=== PATIENT | male | born 1935 | race Caucasian/White ===

== ENCOUNTER 2020-12-19 15:40 | Inpatient (IN) | payer OTHER, BC ==
[2020-12-19 15:55] VITALS: BMI 31.4
[2020-12-19] MEDS ORDERED: ACETAMINOPHEN 325 MG TABLET (FP) PO ONE (16:24)
[2020-12-19 17:26] LABS: BASO % 0.5 % (0-2.0); HEMATOCRIT 39.8 % (35.4-49); HEMOGLOBIN 13.2 GM/dL (11.7-16.9); LYMPH % 21.4 % (8-40); MCH 30.2 pg (25.7-33.7); MCHC 33.2 g/dl (32.0-35.9); MEAN PLT VOLUME 8.1 fl (7.5-11.1); MONO % 6.8 % (3.8-10.2); NEUT % 69.3 % (42.8-82.8); PLATELET COUNT 207 10^3/uL (134-434); RBC 4.37 M/mm3 (4.00-5.60); RDW 17.5 % (11.9-15.9); WHITE BLOOD COUNT 12.1 K/mm3 (4.0-10.0)
[2020-12-19 17:33] LABS: INR 1.4 (0.83-1.09); PROTHROMBIN TIME (PATIENT) 17.1 SEC (9.7-13.0)
[2020-12-19 17:36] LABS: ACTIVATED PTT 21.1 SECONDS (25.2-36.5)
[2020-12-19 17:46] LABS: CALCIUM 9.1 mg/dL (8.5-10.1)
[2020-12-19 17:47] LABS: ALBUMIN 3.7 g/dl (3.4-5.0); BLOOD UREA NITROGEN 23.7 mg/dL (7-18)
[2020-12-19 17:50] LABS: CREATININE 1.4 mg/dL (0.55-1.3)
[2020-12-19 17:52] LABS: BILIRUBIN,TOTAL 0.5 mg/dL (0.2-1); TOT PROT 7.9 g/dl (6.4-8.2)
[2020-12-19] MEDS ORDERED: SODIUM CHLORIDE 500 ML IV STA (17:59)
[2020-12-19] MEDS ORDERED: oxyCODONE HCL 5 MG TABLET PO ONE (18:04)
[2020-12-19 21:52] LABS: MAGNESIUM 2.1 mg/dL (1.8-2.4)
[2020-12-19 21:56] LABS: PHOSPHOROUS 2.8 mg/dL (2.5-4.9)
[2020-12-20 00:04] LABS: EPI CELLS 8 /uL (0-25.1); HYALINE CASTS 13 /uL (0-3.1); URINE APPEARANCE CLOUDY; URINE BACTERIA 5 /uL (0-1359); URINE BILIRUBIN NEGATIVE (NEGATIVE); URINE COLOR DK YELLOW; URINE GLUCOSE (UA) NEGATIVE (NEGATIVE); URINE KETONE TRACE (NEGATIVE); URINE LEUK ESTERASE NEGATIVE (NEGATIVE); URINE NITRITE NEGATIVE (NEGATIVE); URINE PROTEIN TRACE (NEGATIVE); URINE RBC 16 /uL (0-23.9); URINE WBC 10 /uL (0-25.8)
[2020-12-20] MEDS ORDERED: APIXABAN 5 MG TABLET ONE ×2 (03:14→10:25)
[2020-12-20] MEDS: APIXABAN 5 MG TABLET PO SCH ×3 (03:20→21:41)
[2020-12-20] MEDS: ACETAMINOPHEN 325 MG TABLET (FP) PO PRN ×2 (03:20→21:50)
[2020-12-20] MEDS ORDERED: LIDOCAINE 5% TOPICAL PATCH TP ONE (05:58)
[2020-12-20] MEDS: INSULIN SLIDING SCALE (NOVOLOG) 1 VIAL SQ SCH ×4 (06:23→21:42)
[2020-12-20] MEDS: THYROID 60 MG TABLET PO SCH (06:38)
[2020-12-20] MEDS ORDERED: THYROID PORK 120 MG PO SCH (10:00)
[2020-12-20] MEDS ORDERED: LIDOCAINE PATCH REMOVAL MC ONE (19:00)
[2020-12-20] MEDS ORDERED: TAMSULOSIN HCL 0.4 MG CAP ONE (20:07)
[2020-12-20] MEDS ORDERED: VALSARTAN 80 MG TABLET ONE (20:07)
[2020-12-20] MEDS: VALSARTAN 80 MG TABLET PO SCH (20:14)
[2020-12-20] MEDS: TAMSULOSIN HCL 0.4 MG CAP PO SCH (20:14)
[2020-12-20] MEDS: ALLOPURINOL 100 MG TABLET (FP) PO SCH (21:41)
[2020-12-20] MEDS: RANOLAZINE E.R. 500 MG TABLET (FP) PO SCH (21:41)
[2020-12-21] MEDS ORDERED: traMADol HCL 50 MG TABLET PO ONE (01:36)
[2020-12-21] MEDS: THYROID 60 MG TABLET PO SCH (06:35)
[2020-12-21] MEDS: INSULIN SLIDING SCALE (NOVOLOG) 1 VIAL SQ SCH ×4 (06:36→21:27)
[2020-12-21] MEDS ORDERED: INSULIN SLIDING SCALE (NOVOLOG) 1 VIAL SQ ONE (07:00)
[2020-12-21] MEDS: TAMSULOSIN HCL 0.4 MG CAP PO SCH (07:40)
[2020-12-21 07:42] LABS: BASO % 1.1 % (0-2.0); EOS % 5.9 % (0-4.5); HEMATOCRIT 39.5 % (35.4-49); HEMOGLOBIN 13.3 GM/dL (11.7-16.9); LYMPH % 28.5 % (8-40); MCH 30.7 pg (25.7-33.7); MCHC 33.8 g/dl (32.0-35.9); MEAN CELL VOLUME 90.8 fl (80-96); MEAN PLT VOLUME 8.1 fl (7.5-11.1); MONO % 9.4 % (3.8-10.2); NEUT % 55.1 % (42.8-82.8); PLATELET COUNT 172 10^3/uL (134-434); RBC 4.35 M/mm3 (4.00-5.60); RDW 17.4 % (11.9-15.9); WHITE BLOOD COUNT 10.2 K/mm3 (4.0-10.0)
[2020-12-21 08:04] LABS: ALBUMIN 3.1 g/dl (3.4-5.0)
[2020-12-21 08:06] LABS: CALCIUM 8.9 mg/dL (8.5-10.1)
[2020-12-21 08:08] LABS: CREATININE 1.2 mg/dL (0.55-1.3)
[2020-12-21 08:09] LABS: PHOSPHOROUS 2.7 mg/dL (2.5-4.9); TOT PROT 7.1 g/dl (6.4-8.2)
[2020-12-21 08:11] LABS: BILIRUBIN,TOTAL 0.7 mg/dL (0.2-1)
[2020-12-21] MEDS: RANOLAZINE E.R. 500 MG TABLET (FP) PO SCH (09:19)
[2020-12-21] MEDS: APIXABAN 5 MG TABLET PO SCH ×2 (09:19→21:26)
[2020-12-21] MEDS: ALLOPURINOL 100 MG TABLET (FP) PO SCH (09:19)
[2020-12-21] MEDS: VALSARTAN 80 MG TABLET PO SCH (09:19)
[2020-12-21] MEDS: VALSARTAN 40 MG TABLET PO SCH (09:47)
[2020-12-21] MEDS ORDERED: PT OWN MED DRAWER 7, Y5N ONE ×2 (10:13→21:34)
[2020-12-21] MEDS: ACETAMINOPHEN 325 MG TABLET (FP) PO PRN ×2 (11:04→17:43)
[2020-12-21] MEDS ORDERED: ACETAMINOPHEN 325 MG TABLET (FP) PO ONE (21:00)
[2020-12-21] MEDS ORDERED: oxyCODONE HCL 5 MG TABLET PO ONE (21:00)
[2020-12-22] MEDS: ACETAMINOPHEN 325 MG TABLET (FP) PO PRN ×2 (05:39→14:02)
[2020-12-22] MEDS: THYROID 60 MG TABLET PO SCH (06:04)
[2020-12-22] MEDS: INSULIN SLIDING SCALE (NOVOLOG) 1 VIAL SQ SCH ×3 (06:04→17:14)
[2020-12-22] MEDS ORDERED: INSULIN SLIDING SCALE (NOVOLOG) 1 VIAL SQ ONE (06:50)
[2020-12-22 07:29] LABS: HEMATOCRIT 37.5 % (35.4-49); HEMOGLOBIN 12.4 GM/dL (11.7-16.9); MCH 30.2 pg (25.7-33.7); MEAN CELL VOLUME 91.4 fl (80-96); MEAN PLT VOLUME 8.2 fl (7.5-11.1); PLATELET COUNT 180 10^3/uL (134-434); RBC 4.11 M/mm3 (4.00-5.60); RDW 17.4 % (11.9-15.9); WHITE BLOOD COUNT 8.9 K/mm3 (4.0-10.0)
[2020-12-22 07:51] LABS: ALBUMIN 2.8 g/dl (3.4-5.0); CALCIUM 8.7 mg/dL (8.5-10.1)
[2020-12-22 07:52] LABS: BLOOD UREA NITROGEN 26.5 mg/dL (7-18); MAGNESIUM 2.2 mg/dL (1.8-2.4)
[2020-12-22 07:54] LABS: BILIRUBIN,TOTAL 0.4 mg/dL (0.2-1); CREATININE 1.1 mg/dL (0.55-1.3)
[2020-12-22 07:55] LABS: PHOSPHOROUS 2.7 mg/dL (2.5-4.9); TOT PROT 6.5 g/dl (6.4-8.2)
[2020-12-22] MEDS: TAMSULOSIN HCL 0.4 MG CAP PO SCH (08:41)
[2020-12-22] MEDS: VALSARTAN 40 MG TABLET PO SCH (10:47)
[2020-12-22] MEDS: APIXABAN 5 MG TABLET PO SCH (10:47)
[2020-12-22] MEDS: ALLOPURINOL 100 MG TABLET (FP) PO SCH (10:47)
[2020-12-22] MEDS ORDERED: traMADol HCL 50 MG TABLET PO ONE (12:30)
[2020-12-22 14:43] VITALS: PULSE 61
[2020-12-22 18:19] VITALS: BP 118/67; TEMP 97.5
== END 2020-12-22 20:20 | DRG 312 ==
LOC: JER 15:40 → JERBED 17:47 → OBSVTOIN 23:57 → J4S 12-20 20:47
PROVIDERS: ADMIT Internal Medicine; ATTEND Internal Medicine
PROC: 2W3TX2Z Immobilization of Left Foot using Cast (ICD-10-PCS; principal; 2020-12-20)
DX: I95.1 Orthostatic hypotension (principal); I48.0 Paroxysmal atrial fibrillation; E03.9 Hypothyroidism, unspecified; N40.0 Benign prostatic hyperplasia without lower urinary tract symptoms; M10.9 Gout, unspecified; I25.10 Atherosclerotic heart disease of native coronary artery without angina pectoris; G43.909 Migraine, unspecified, not intractable, without status migrainosus; I34.0 Nonrheumatic mitral (valve) insufficiency; N18.9 Chronic kidney disease, unspecified; I12.9 Hypertensive chronic kidney disease with stage 1 through stage 4 chronic kidney disease, or unspecified chronic kidney disease; E11.22 Type 2 diabetes mellitus with diabetic chronic kidney disease; D72.829 Elevated white blood cell count, unspecified; S82.845A Nondisplaced bimalleolar fracture of left lower leg, initial encounter for closed fracture; S93.402A Sprain of unspecified ligament of left ankle, initial encounter; W18.30XA Fall on same level, unspecified, initial encounter; Y92.090 Kitchen in other non-institutional residence as the place of occurrence of the external cause; Z88.0 Allergy status to penicillin; Z96.651 Presence of right artificial knee joint; Z95.0 Presence of cardiac pacemaker
CPT/HCPCS: 36415; 70450-TC; 71045-TC-FY; 72125-TC; 72128-TC; 72131-TC; 72170-TC-FY; 73610-TC-LT-FY; 73630-TC-LT; 76775-TC; 80053; 80061; 81003; 82436; 82550; 82570; 82962; 83036; 83735; 84100; 84133; 84300; 84443; 84484; 85025; 85027; 85610; 85730; 93005; 93010; 93306-TC; 93880-TC; 97116-GP; 97161-GP; 99285-25; C9803; G0378; U0003; U0005

== ENCOUNTER 2022-11-11 20:51 | Inpatient (IN) | payer OTHER, BC ==
[2022-11-11] MEDS ORDERED: ALBUTEROL SO4 2.5/IPRATROPIUM 0.5 INH SOL 3 ML VIAL.NEB. NEB ONE ×2 (22:21→22:58)
[2022-11-11 23:06] LABS: BASO % 0.9 % (0-2.0); EOS % 6.3 % (0-4.5); HEMATOCRIT 42.8 % (35.4-49); HEMOGLOBIN 13.9 GM/dL (11.7-16.9); LYMPH % 30.4 % (8-40); MCH 28.8 pg (25.7-33.7); MCHC 32.4 g/dl (32.0-35.9); MEAN CELL VOLUME 88.7 fl (80-96); MEAN PLT VOLUME 7.8 fl (7.5-11.1); MONO % 7.8 % (3.8-10.2); NEUT % 54.6 % (42.8-82.8); PLATELET COUNT 193 10^3/uL (134-434); RBC 4.83 M/mm3 (4.00-5.60); RDW 17.6 % (11.9-15.9); WHITE BLOOD COUNT 9.2 K/mm3 (4.0-10.0)
[2022-11-11 23:09] LABS: VENOUS O2 SATURATION 40.6 % (70-80); VENOUS PCO2 49.7 mmHg (38-52); VENOUS PH 7.315 (7.310-7.410)
[2022-11-11 23:15] LABS: INR 1.39 (0.83-1.09); PROTHROMBIN TIME (PATIENT) 16.1 SEC (9.7-13.0)
[2022-11-11 23:18] LABS: ACTIVATED PTT 35.7 SECONDS (25.2-36.5)
[2022-11-11 23:40] LABS: POTASSIUM 4.3 mmol/L (3.5-5.1)
[2022-11-11 23:42] LABS: CALCIUM 9.7 mg/dL (8.5-10.1)
[2022-11-11 23:43] LABS: ALBUMIN 3.3 g/dl (3.4-5.0); BLOOD UREA NITROGEN 23.1 mg/dL (7-18); MAGNESIUM 2.2 mg/dL (1.8-2.4)
[2022-11-11 23:46] LABS: CREATININE 1.3 mg/dL (0.55-1.3)
[2022-11-11 23:47] LABS: BILIRUBIN,TOTAL 0.4 mg/dL (0.2-1); TOT PROT 7.8 g/dl (6.4-8.2)
[2022-11-11 23:51] LABS: N-TERMINAL BNP 281.9 pg/ml (5-450)
[2022-11-12] MEDS ORDERED: ALBUTEROL SO4 2.5/IPRATROPIUM 0.5 INH SOL 3 ML VIAL.NEB. NEB ONE ×2 (02:09→02:10)
[2022-11-12] MEDS ORDERED: SUMAtriptan SUCCINATE 50 MG TABLET PO PRN (08:41)
[2022-11-12] MEDS: metFORMIN HCL 500 MG TABLET (FP) PO SCH (08:52)
[2022-11-12] MEDS: metoPROLOL SUCCINATE 25 MG TAB.SR.24H (FP) PO SCH (09:02)
[2022-11-12] MEDS: ALLOPURINOL 100 MG TABLET (FP) PO SCH (09:02)
[2022-11-12] MEDS: THYROID 60 MG TABLET PO SCH (09:02)
[2022-11-12] MEDS: APIXABAN 5 MG TABLET PO SCH ×2 (09:02→22:11)
[2022-11-12] MEDS: ALBUTEROL SO4 2.5/IPRATROPIUM 0.5 INH SOL 3 ML VIAL.NEB. NEB SCH ×2 (11:43→15:41)
[2022-11-12 13:47] VITALS: BMI 27.8
[2022-11-12] MEDS ORDERED: ALBUTEROL SO4 0.083% IH SOL 2.5 MG/3 ML VIAL.NEB. NEB PRN (16:18)
[2022-11-12] MEDS: FLUTICASONE/UMECLIDIN/VILANTER(200-62.5-25 TRELEGY ELLIPTA) INAHLER IH SCH (17:26)
[2022-11-12] MEDS ORDERED: BUDESONIDE 0.25 MG/2ML INH SUSP VIAL NEB SCH (20:00)
[2022-11-12] MEDS: PRAMIPEXOLE DIHYDROCHLORIDE 0.5 MG TABLET PO SCH (22:12)
[2022-11-12] MEDS: methylPREDNISolone NA SUCC 40 MG/1 ML VIAL IVPUSH SCH (23:56)
[2022-11-13] MEDS: methylPREDNISolone NA SUCC 40 MG/1 ML VIAL IVPUSH SCH ×3 (01:43→17:20)
[2022-11-13] MEDS: INSULIN SLIDING SCALE (NOVOLOG) 1 VIAL SQ SCH ×4 (06:42→17:20)
[2022-11-13] MEDS: metFORMIN HCL 500 MG TABLET (FP) PO SCH (06:43)
[2022-11-13] MEDS: metoPROLOL SUCCINATE 25 MG TAB.SR.24H (FP) PO SCH (10:10)
[2022-11-13] MEDS: ALLOPURINOL 100 MG TABLET (FP) PO SCH (10:10)
[2022-11-13] MEDS: APIXABAN 5 MG TABLET PO SCH ×2 (10:10→21:26)
[2022-11-13] MEDS: THYROID 60 MG TABLET PO SCH (10:11)
[2022-11-13] MEDS: FLUTICASONE/UMECLIDIN/VILANTER(200-62.5-25 TRELEGY ELLIPTA) INAHLER IH SCH (10:12)
[2022-11-13 10:14] LABS: BASO % 0.2 % (0-2.0); EOS % 0.1 % (0-4.5); HEMATOCRIT 38.3 % (35.4-49); HEMOGLOBIN 12.2 GM/dL (11.7-16.9); LYMPH % 19.2 % (8-40); MCH 28.7 pg (25.7-33.7); MCHC 31.8 g/dl (32.0-35.9); MEAN CELL VOLUME 90.4 fl (80-96); MONO % 1.2 % (3.8-10.2); NEUT % 79.3 % (42.8-82.8); PLATELET COUNT 180 10^3/uL (134-434); RBC 4.23 M/mm3 (4.00-5.60); RDW 17.8 % (11.9-15.9); WHITE BLOOD COUNT 5.7 K/mm3 (4.0-10.0)
[2022-11-13 10:30] LABS: CALCIUM 9.5 mg/dL (8.5-10.1)
[2022-11-13 10:34] LABS: CREATININE 1.1 mg/dL (0.55-1.3)
[2022-11-13] MEDS: SODIUM CHLORIDE 0.45% 1,000 ML IV SCH (13:20)
[2022-11-13] MEDS: ALBUTEROL SO4 0.083% IH SOL 2.5 MG/3 ML VIAL.NEB. NEB SCH ×3 (16:18→21:45)
[2022-11-13] MEDS: PRAMIPEXOLE DIHYDROCHLORIDE 0.5 MG TABLET PO SCH (21:26)
[2022-11-14] MEDS: methylPREDNISolone NA SUCC 40 MG/1 ML VIAL IVPUSH SCH ×2 (01:08→10:49)
[2022-11-14] MEDS: SODIUM CHLORIDE 0.45% 1,000 ML IV SCH ×2 (02:32→10:45)
[2022-11-14] MEDS: ALBUTEROL SO4 0.083% IH SOL 2.5 MG/3 ML VIAL.NEB. NEB SCH (08:20)
[2022-11-14] MEDS: INSULIN SLIDING SCALE (NOVOLOG) 1 VIAL SQ SCH ×2 (08:42→11:36)
[2022-11-14] MEDS: metFORMIN HCL 500 MG TABLET (FP) PO SCH (08:42)
[2022-11-14 09:54] LABS: POTASSIUM 4.5 mmol/L (3.5-5.1)
[2022-11-14 09:56] LABS: CALCIUM 9.3 mg/dL (8.5-10.1)
[2022-11-14 09:57] LABS: BLOOD UREA NITROGEN 29.6 mg/dL (7-18)
[2022-11-14 10:00] LABS: CREATININE 1.1 mg/dL (0.55-1.3)
[2022-11-14] MEDS: FLUTICASONE/UMECLIDIN/VILANTER(200-62.5-25 TRELEGY ELLIPTA) INAHLER IH SCH (10:49)
[2022-11-14] MEDS: metoPROLOL SUCCINATE 25 MG TAB.SR.24H (FP) PO SCH (10:49)
[2022-11-14] MEDS: ALLOPURINOL 100 MG TABLET (FP) PO SCH (10:49)
[2022-11-14] MEDS: THYROID 60 MG TABLET PO SCH (10:49)
[2022-11-14] MEDS: APIXABAN 5 MG TABLET PO SCH (11:42)
[2022-11-14 11:50] VITALS: RESP 16
[2022-11-14 14:56] VITALS: BP 141/72; PULSE 69; TEMP 98.3
== END 2022-11-14 15:08 | disposition home or self-care (01) | DRG 192 ==
LOC: JER 20:51 → JERBED 11-12 05:16 → J5S 11-12 09:11 → OBSVTOIN 11-13 10:04
PROVIDERS: ADMIT Internal Medicine; ATTEND Internal Medicine
DX: J47.9 Bronchiectasis, uncomplicated (principal); I10 Essential (primary) hypertension; E78.5 Hyperlipidemia, unspecified; E11.9 Type 2 diabetes mellitus without complications; I25.10 Atherosclerotic heart disease of native coronary artery without angina pectoris; I48.91 Unspecified atrial fibrillation; J98.01 Acute bronchospasm; E03.9 Hypothyroidism, unspecified; D72.10 Eosinophilia, unspecified
CPT/HCPCS: 0241U-QW; 36415; 71250-TC; 80048; 80053; 82803; 82962; 83735; 83880; 84484; 85025; 85610; 85730; 86682; 93005; 93010; 94150; 94640; 99285-25; G0378

== ENCOUNTER 2022-12-28 21:54 | Inpatient (IN) | payer OTHER, BC ==
[2022-12-28 22:07] VITALS: BMI 27.6
[2022-12-28 23:32] LABS: INR 1.43 (0.83-1.09); PROTHROMBIN TIME (PATIENT) 16.5 SEC (9.7-13.0)
[2022-12-28 23:34] LABS: BASO % 0.5 % (0-2.0); EOS % 0.6 % (0-4.5); HEMATOCRIT 39.9 % (35.4-49); HEMOGLOBIN 13.1 GM/dL (11.7-16.9); MCH 28.9 pg (25.7-33.7); MCHC 32.8 g/dl (32.0-35.9); MEAN CELL VOLUME 88.2 fl (80-96); MEAN PLT VOLUME 8.2 fl (7.5-11.1); MONO % 7.6 % (3.8-10.2); NEUT % 76.3 % (42.8-82.8); PLATELET COUNT 205 10^3/uL (134-434); RBC 4.52 M/mm3 (4.00-5.60); RDW 16.8 % (11.9-15.9)
[2022-12-28 23:35] LABS: ACTIVATED PTT 29.2 SECONDS (25.2-36.5)
[2022-12-28 23:43] LABS: CHLORIDE 105 mmol/L (98-107); SODIUM 137 mmol/L (136-145)
[2022-12-28 23:46] LABS: CALCIUM 8.8 mg/dL (8.5-10.1)
[2022-12-28 23:47] LABS: ALBUMIN 3.1 g/dl (3.4-5.0); BLOOD UREA NITROGEN 17.7 mg/dL (7-18); CO2 26 mmol/L (21-32); GLUCOSE,RANDOM 150 mg/dL (74-106)
[2022-12-28 23:50] LABS: CREATININE 1.7 mg/dL (0.55-1.3); SGOT/AST 84 U/L (15-37); SGPT/ALT 35 U/L (13-61)
[2022-12-28 23:51] LABS: TOT PROT 7.5 g/dl (6.4-8.2)
[2022-12-28 23:52] LABS: BILIRUBIN,TOTAL 0.6 mg/dL (0.2-1)
[2022-12-28 23:53] LABS: ALK PHOS 307 U/L (45-117); ANION GAP 6 MMOL/L (8-16); POTASSIUM 6.3 mmol/L (3.5-5.1)
[2022-12-29] MEDS ORDERED: ACETAMINOPHEN 1000 MG/100 ML BAG IVPB ONE (00:47)
[2022-12-29] MEDS ORDERED: METOCLOPRAMIDE HCL INJECTION 10 MG/2 ML VIAL IVPUSH ONE (00:47)
[2022-12-29] MEDS ORDERED: SODIUM CHLORIDE 0.9% 500 ML INFUS.BAG IV ONE (00:47)
[2022-12-29] MEDS ORDERED: ACETAMINOPHEN INJECTION 100 ML IVPB ONE (00:48)
[2022-12-29] MEDS ORDERED: METOCLOPRAMIDE HCL INJECTION 10 MG/2 ML VIAL ONE (00:48)
[2022-12-29 01:52] LABS: URINE APPEARANCE CLEAR; URINE BILIRUBIN NEGATIVE (NEGATIVE); URINE COLOR YELLOW; URINE GLUCOSE (UA) NEGATIVE (NEGATIVE); URINE KETONE TRACE (NEGATIVE); URINE LEUK ESTERASE NEGATIVE (NEGATIVE); URINE NITRITE NEGATIVE (NEGATIVE); URINE PROTEIN NEGATIVE (NEGATIVE)
[2022-12-29 02:03] LABS: POTASSIUM 4.1 mmol/L (3.5-5.1)
[2022-12-29 02:04] LABS: CALCIUM 7.9 mg/dL (8.5-10.1)
[2022-12-29 02:05] LABS: BLOOD UREA NITROGEN 18.2 mg/dL (7-18)
[2022-12-29 02:08] LABS: CREATININE 1.4 mg/dL (0.55-1.3)
[2022-12-29] MEDS ORDERED: KETOROLAC TROMETHAMINE 15 MG/ML VIAL IVPUSH ONE (04:24)
[2022-12-29] MEDS ORDERED: KETOROLAC TROMETHAMINE 15 MG/ML VIAL ONE (04:38)
[2022-12-29] MEDS ORDERED: ACETAMINOPHEN 1000 MG/100 ML BAG IVPB PRN (06:50)
[2022-12-29] MEDS ORDERED: SODIUM CHLORIDE 1,000 ML IV SCH (07:00)
[2022-12-29] MEDS ORDERED: PATIENT'S OWN MEDICATION (NON-FORMULARY) (Sumatriptan Succinate [Sumatriptan Succinate] 10 PO PRN (07:25)
[2022-12-29] MEDS ORDERED: SUMAtriptan SUCCINATE 50 MG TABLET PO PRN (07:37)
[2022-12-29] MEDS: INSULIN SLIDING SCALE (NOVOLOG) 1 VIAL SQ SCH ×4 (07:58→22:19)
[2022-12-29] MEDS ORDERED: APIXABAN 5 MG TABLET PO SCH (10:00)
[2022-12-29] MEDS ORDERED: THYROID PORK 120 MG PO SCH (10:00)
[2022-12-29] MEDS: metoPROLOL SUCCINATE 25 MG TAB.SR.24H (FP) PO SCH (10:48)
[2022-12-29] MEDS: PANTOPRAZOLE 40 MG TABLET PO SCH (10:48)
[2022-12-29] MEDS: THYROID 60 MG TABLET PO SCH (15:25)
[2022-12-29] MEDS: ACETAMINOPHEN 1000 MG/100 ML BAG IVPB PRN (18:42)
[2022-12-30] MEDS: ACETAMINOPHEN 1000 MG/100 ML BAG IVPB PRN (05:37)
[2022-12-30] MEDS: THYROID 60 MG TABLET PO SCH (06:44)
[2022-12-30] MEDS: INSULIN SLIDING SCALE (NOVOLOG) 1 VIAL SQ SCH ×4 (07:58→21:42)
[2022-12-30] MEDS: PANTOPRAZOLE 40 MG TABLET PO SCH (09:38)
[2022-12-30] MEDS: metoPROLOL SUCCINATE 25 MG TAB.SR.24H (FP) PO SCH (09:38)
[2022-12-30 09:57] LABS: BASO % 0.9 % (0-2.0); HEMATOCRIT 41.9 % (35.4-49); HEMOGLOBIN 13.2 GM/dL (11.7-16.9); LYMPH % 19.8 % (8-40); MCH 28.6 pg (25.7-33.7); MCHC 31.6 g/dl (32.0-35.9); MEAN CELL VOLUME 90.7 fl (80-96); MEAN PLT VOLUME 9.2 fl (7.5-11.1); MONO % 9.5 % (3.8-10.2); NEUT % 67.8 % (42.8-82.8); PLATELET COUNT 203 10^3/uL (134-434); RBC 4.62 M/mm3 (4.00-5.60); RDW 16.8 % (11.9-15.9); WHITE BLOOD COUNT 12.2 K/mm3 (4.0-10.0)
[2022-12-30 10:10] LABS: POTASSIUM 4.2 mmol/L (3.5-5.1)
[2022-12-30 10:11] LABS: CALCIUM 8.9 mg/dL (8.5-10.1)
[2022-12-30 10:13] LABS: MAGNESIUM 1.9 mg/dL (1.8-2.4)
[2022-12-30 10:15] LABS: CREATININE 1.1 mg/dL (0.55-1.3); PHOSPHOROUS 2.7 mg/dL (2.5-4.9)
[2022-12-30] MEDS: ACETAMINOPHEN 325 MG TABLET (FP) PO PRN ×2 (11:12→18:39)
[2022-12-30] MEDS ORDERED: amLODIPine BESYLATE 10 MG TABLET (FP) PO SCH (16:00)
[2022-12-30] MEDS ORDERED: VALPROATE SODIUM 500 MG/5 ML VIAL IVPB ONE (16:21)
[2022-12-30] MEDS: ALBUTEROL SO4 0.083% IH SOL 2.5 MG/3 ML VIAL.NEB. NEB PRN (16:37)
[2022-12-30] MEDS: RIMEGEPANT SULFATE 75 MG TAB.RAPDIS SL SCH (18:16)
[2022-12-30] MEDS: BUDESONIDE 0.25 MG/2ML INH SUSP VIAL NEB SCH (20:24)
[2022-12-30] MEDS: BUDESONIDE/FORMETEROL FUMARATE 80/4.5 mcg INHALER IH SCH (21:42)
[2022-12-30] MEDS ORDERED: metoPROLOL SUCCINATE 25 MG TAB.SR.24H (FP) PO SCH (22:00)
[2022-12-30] MEDS ORDERED: PRAMIPEXOLE DIHYDROCHLORIDE 0.5 MG TABLET PO SCH (22:00)
[2022-12-31] MEDS: INSULIN SLIDING SCALE (NOVOLOG) 1 VIAL SQ SCH ×4 (06:22→21:22)
[2022-12-31] MEDS: THYROID 60 MG TABLET PO SCH (06:23)
[2022-12-31] MEDS ORDERED: metoPROLOL SUCCINATE 25 MG TAB.SR.24H (FP) PO SCH (08:33)
[2022-12-31] MEDS: BUDESONIDE 0.25 MG/2ML INH SUSP VIAL NEB SCH ×2 (09:16→20:09)
[2022-12-31] MEDS: DIVALPROEX NA *ER* EXTEND REL 500 MG TABLET.SA (FP) PO SCH (09:25)
[2022-12-31] MEDS: metoPROLOL SUCCINATE 25 MG TAB.SR.24H (FP) PO SCH ×2 (09:25→21:12)
[2022-12-31] MEDS: APIXABAN 5 MG TABLET PO SCH ×2 (09:25→21:12)
[2022-12-31] MEDS: PANTOPRAZOLE 40 MG TABLET PO SCH (09:25)
[2022-12-31] MEDS: RIMEGEPANT SULFATE 75 MG TAB.RAPDIS SL SCH (09:25)
[2022-12-31] MEDS: ACETAMINOPHEN 325 MG TABLET (FP) PO PRN ×2 (09:26→17:31)
[2022-12-31] MEDS: BUDESONIDE/FORMETEROL FUMARATE 80/4.5 mcg INHALER IH SCH ×2 (09:27→21:14)
[2022-12-31 09:39] LABS: HEMATOCRIT 42.4 % (35.4-49); MCH 29.2 pg (25.7-33.7); MEAN CELL VOLUME 88.3 fl (80-96); MEAN PLT VOLUME 8.7 fl (7.5-11.1); PLATELET COUNT 201 10^3/uL (134-434); RDW 16.5 % (11.9-15.9); WHITE BLOOD COUNT 14.4 K/mm3 (4.0-10.0)
[2022-12-31] MEDS ORDERED: FLUTICASONE/UMECLIDIN/VILANTER(200-62.5-25 TRELEGY ELLIPTA) INAHLER IH SCH (10:00)
[2022-12-31 10:02] LABS: POTASSIUM 4.2 mmol/L (3.5-5.1)
[2022-12-31 10:12] LABS: CALCIUM 8.9 mg/dL (8.5-10.1)
[2022-12-31 10:13] LABS: ALBUMIN 2.9 g/dl (3.4-5.0); MAGNESIUM 1.8 mg/dL (1.8-2.4)
[2022-12-31 10:16] LABS: CREATININE 1.2 mg/dL (0.55-1.3); PHOSPHOROUS 2.8 mg/dL (2.5-4.9)
[2022-12-31 10:17] LABS: BILIRUBIN,TOTAL 1.2 mg/dL (0.2-1); TOT PROT 6.9 g/dl (6.4-8.2)
[2022-12-31] MEDS: ALLOPURINOL 100 MG TABLET (FP) PO SCH ×2 (12:54→21:12)
[2022-12-31] MEDS: ROSUVASTATIN CA 5 MG TABLET PO SCH (21:12)
[2023-01-01] MEDS: THYROID 60 MG TABLET PO SCH (06:26)
[2023-01-01] MEDS: INSULIN SLIDING SCALE (NOVOLOG) 1 VIAL SQ SCH ×4 (06:26→21:11)
[2023-01-01] MEDS: BUDESONIDE 0.25 MG/2ML INH SUSP VIAL NEB SCH ×2 (07:20→20:30)
[2023-01-01 07:21] LABS: HEMATOCRIT 42.4 % (35.4-49); HEMOGLOBIN 13.3 GM/dL (11.7-16.9); MCH 28.8 pg (25.7-33.7); MCHC 31.5 g/dl (32.0-35.9); MEAN CELL VOLUME 91.5 fl (80-96); MEAN PLT VOLUME 9.6 fl (7.5-11.1); PLATELET COUNT 199 10^3/uL (134-434); RBC 4.63 M/mm3 (4.00-5.60); RDW 16.3 % (11.9-15.9); WHITE BLOOD COUNT 14.3 K/mm3 (4.0-10.0)
[2023-01-01 08:39] LABS: ALBUMIN 2.6 g/dl (3.4-5.0); BILIRUBIN,TOTAL 0.8 mg/dL (0.2-1); BLOOD UREA NITROGEN 24.2 mg/dL (7-18); CALCIUM 8.7 mg/dL (8.5-10.1); CREATININE 1.1 mg/dL (0.55-1.3); MAGNESIUM 1.9 mg/dL (1.8-2.4); PHOSPHOROUS 3.4 mg/dL (2.5-4.9); POTASSIUM 4.7 mmol/L (3.5-5.1); TOT PROT 6.5 g/dl (6.4-8.2)
[2023-01-01] MEDS: APIXABAN 5 MG TABLET PO SCH ×2 (10:18→21:11)
[2023-01-01] MEDS: ALLOPURINOL 100 MG TABLET (FP) PO SCH ×2 (10:18→21:11)
[2023-01-01] MEDS: metoPROLOL SUCCINATE 25 MG TAB.SR.24H (FP) PO SCH ×2 (10:18→21:11)
[2023-01-01] MEDS: PANTOPRAZOLE 40 MG TABLET PO SCH (10:18)
[2023-01-01] MEDS: RIMEGEPANT SULFATE 75 MG TAB.RAPDIS SL SCH (10:19)
[2023-01-01] MEDS: DIVALPROEX NA *ER* EXTEND REL 500 MG TABLET.SA (FP) PO SCH (10:20)
[2023-01-01] MEDS: BUDESONIDE/FORMETEROL FUMARATE 80/4.5 mcg INHALER IH SCH ×2 (10:20→21:10)
[2023-01-01] MEDS: ACETAMINOPHEN 325 MG TABLET (FP) PO PRN (15:15)
[2023-01-01] MEDS: ROSUVASTATIN CA 5 MG TABLET PO SCH (21:11)
[2023-01-02] MEDS: INSULIN SLIDING SCALE (NOVOLOG) 1 VIAL SQ SCH ×4 (06:27→22:03)
[2023-01-02] MEDS: THYROID 60 MG TABLET PO SCH (06:37)
[2023-01-02] MEDS: BUDESONIDE 0.25 MG/2ML INH SUSP VIAL NEB SCH ×2 (07:45→20:03)
[2023-01-02] MEDS: ALBUTEROL SO4 0.083% IH SOL 2.5 MG/3 ML VIAL.NEB. NEB PRN (07:50)
[2023-01-02 08:14] LABS: POTASSIUM 4.5 mmol/L (3.5-5.1)
[2023-01-02 08:20] LABS: HEMATOCRIT 43.2 % (35.4-49); HEMOGLOBIN 13.7 GM/dL (11.7-16.9); MCH 28.7 pg (25.7-33.7); MCHC 31.7 g/dl (32.0-35.9); MEAN CELL VOLUME 90.7 fl (80-96); MEAN PLT VOLUME 9.2 fl (7.5-11.1); PLATELET COUNT 242 10^3/uL (134-434); RBC 4.77 M/mm3 (4.00-5.60); RDW 16.4 % (11.9-15.9); WHITE BLOOD COUNT 12.6 K/mm3 (4.0-10.0)
[2023-01-02 08:28] LABS: CALCIUM 9.2 mg/dL (8.5-10.1)
[2023-01-02 08:29] LABS: ALBUMIN 2.8 g/dl (3.4-5.0); MAGNESIUM 2.1 mg/dL (1.8-2.4)
[2023-01-02 08:31] LABS: CREATININE 1.2 mg/dL (0.55-1.3)
[2023-01-02 08:32] LABS: PHOSPHOROUS 3.5 mg/dL (2.5-4.9)
[2023-01-02 08:33] LABS: BILIRUBIN,TOTAL 0.9 mg/dL (0.2-1); TOT PROT 7.2 g/dl (6.4-8.2)
[2023-01-02] MEDS: APIXABAN 5 MG TABLET PO SCH ×2 (09:38→21:51)
[2023-01-02] MEDS: ALLOPURINOL 100 MG TABLET (FP) PO SCH ×2 (09:38→21:51)
[2023-01-02] MEDS: metoPROLOL SUCCINATE 25 MG TAB.SR.24H (FP) PO SCH ×2 (09:39→21:51)
[2023-01-02] MEDS: RIMEGEPANT SULFATE 75 MG TAB.RAPDIS SL SCH (09:41)
[2023-01-02] MEDS: DIVALPROEX NA *ER* EXTEND REL 500 MG TABLET.SA (FP) PO SCH (09:42)
[2023-01-02] MEDS: PANTOPRAZOLE 40 MG TABLET PO SCH (09:42)
[2023-01-02] MEDS: BUDESONIDE/FORMETEROL FUMARATE 80/4.5 mcg INHALER IH SCH ×2 (11:33→21:54)
[2023-01-02] MEDS ORDERED: ACETAMINOPHEN 1000 MG/100 ML BAG IVPB ONE (12:00)
[2023-01-02] MEDS ORDERED: LIDOCAINE 5% TOPICAL PATCH TP ONE ×2 (13:13→15:45)
[2023-01-02] MEDS: POLYETHYLENE GLYCOL (HEALTHYLAX) 3350 17 GM PACKET PO SCH (15:37)
[2023-01-02] MEDS: ROSUVASTATIN CA 5 MG TABLET PO SCH (21:52)
[2023-01-02] MEDS ORDERED: LIDOCAINE PATCH REMOVAL MC SCH (22:00)
[2023-01-03] MEDS: THYROID 60 MG TABLET PO SCH (06:01)
[2023-01-03] MEDS: INSULIN SLIDING SCALE (NOVOLOG) 1 VIAL SQ SCH ×4 (06:07→21:33)
[2023-01-03] MEDS: BUDESONIDE 0.25 MG/2ML INH SUSP VIAL NEB SCH ×2 (07:50→20:20)
[2023-01-03 08:43] LABS: HEMATOCRIT 43.2 % (35.4-49); HEMOGLOBIN 14.3 GM/dL (11.7-16.9); MCH 29.3 pg (25.7-33.7); MCHC 33.1 g/dl (32.0-35.9); MEAN CELL VOLUME 88.7 fl (80-96); MEAN PLT VOLUME 8.4 fl (7.5-11.1); PLATELET COUNT 293 10^3/uL (134-434); RBC 4.87 M/mm3 (4.00-5.60); RDW 15.9 % (11.9-15.9); WHITE BLOOD COUNT 13.4 K/mm3 (4.0-10.0)
[2023-01-03 09:04] LABS: POTASSIUM 4.7 mmol/L (3.5-5.1)
[2023-01-03 09:11] LABS: ALBUMIN 2.7 g/dl (3.4-5.0); CALCIUM 9.3 mg/dL (8.5-10.1); CREATININE 1.1 mg/dL (0.55-1.3); MAGNESIUM 2.1 mg/dL (1.8-2.4)
[2023-01-03 09:12] LABS: PHOSPHOROUS 3.3 mg/dL (2.5-4.9)
[2023-01-03 09:14] LABS: BILIRUBIN,TOTAL 0.9 mg/dL (0.2-1); TOT PROT 7.1 g/dl (6.4-8.2)
[2023-01-03] MEDS: POLYETHYLENE GLYCOL (HEALTHYLAX) 3350 17 GM PACKET PO SCH (09:46)
[2023-01-03] MEDS: metoPROLOL SUCCINATE 25 MG TAB.SR.24H (FP) PO SCH ×2 (09:46→21:21)
[2023-01-03] MEDS: ALLOPURINOL 100 MG TABLET (FP) PO SCH ×2 (09:47→21:21)
[2023-01-03] MEDS: APIXABAN 5 MG TABLET PO SCH ×2 (09:47→21:21)
[2023-01-03] MEDS: DIVALPROEX NA *ER* EXTEND REL 500 MG TABLET.SA (FP) PO SCH (09:47)
[2023-01-03] MEDS: PANTOPRAZOLE 40 MG TABLET PO SCH (09:47)
[2023-01-03] MEDS: LIDOCAINE 5% TOPICAL PATCH TP SCH (09:48)
[2023-01-03] MEDS: BUDESONIDE/FORMETEROL FUMARATE 80/4.5 mcg INHALER IH SCH ×2 (09:49→21:21)
[2023-01-03] MEDS: RIMEGEPANT SULFATE 75 MG TAB.RAPDIS SL SCH (09:49)
[2023-01-03] MEDS: ACETAMINOPHEN 325 MG TABLET (FP) PO PRN ×2 (12:17→20:25)
[2023-01-03] MEDS: ROSUVASTATIN CA 5 MG TABLET PO SCH (21:21)
[2023-01-03] MEDS: LIDOCAINE PATCH REMOVAL MC SCH (21:22)
[2023-01-04] MEDS: THYROID 60 MG TABLET PO SCH (06:00)
[2023-01-04] MEDS: INSULIN SLIDING SCALE (NOVOLOG) 1 VIAL SQ SCH ×4 (06:01→21:55)
[2023-01-04] MEDS: ACETAMINOPHEN 325 MG TABLET (FP) PO PRN ×2 (06:03→15:00)
[2023-01-04 06:54] LABS: HEMOGLOBIN 13.1 GM/dL (11.7-16.9); MCH 29.3 pg (25.7-33.7); MCHC 32.1 g/dl (32.0-35.9); MEAN CELL VOLUME 91.3 fl (80-96); MEAN PLT VOLUME 8.9 fl (7.5-11.1); PLATELET COUNT 280 10^3/uL (134-434); RBC 4.49 M/mm3 (4.00-5.60); RDW 16.5 % (11.9-15.9); WHITE BLOOD COUNT 11.9 K/mm3 (4.0-10.0)
[2023-01-04 07:08] LABS: POTASSIUM 4.5 mmol/L (3.5-5.1)
[2023-01-04 07:11] LABS: CALCIUM 8.8 mg/dL (8.5-10.1)
[2023-01-04 07:12] LABS: ALBUMIN 2.4 g/dl (3.4-5.0)
[2023-01-04 07:15] LABS: CREATININE 1.1 mg/dL (0.55-1.3); PHOSPHOROUS 3.2 mg/dL (2.5-4.9)
[2023-01-04 07:16] LABS: BILIRUBIN,TOTAL 0.6 mg/dL (0.2-1); TOT PROT 6.2 g/dl (6.4-8.2)
[2023-01-04] MEDS: BUDESONIDE 0.25 MG/2ML INH SUSP VIAL NEB SCH ×2 (09:00→20:00)
[2023-01-04] MEDS: BUDESONIDE/FORMETEROL FUMARATE 80/4.5 mcg INHALER IH SCH ×2 (11:21→21:56)
[2023-01-04] MEDS: POLYETHYLENE GLYCOL (HEALTHYLAX) 3350 17 GM PACKET PO SCH (11:21)
[2023-01-04] MEDS: LIDOCAINE 5% TOPICAL PATCH TP SCH (11:21)
[2023-01-04] MEDS: metoPROLOL SUCCINATE 25 MG TAB.SR.24H (FP) PO SCH ×2 (11:21→21:56)
[2023-01-04] MEDS: APIXABAN 5 MG TABLET PO SCH ×2 (11:21→21:57)
[2023-01-04] MEDS: DIVALPROEX NA *ER* EXTEND REL 500 MG TABLET.SA (FP) PO SCH (11:21)
[2023-01-04] MEDS: PANTOPRAZOLE 40 MG TABLET PO SCH (11:21)
[2023-01-04] MEDS: RIMEGEPANT SULFATE 75 MG TAB.RAPDIS SL SCH (11:21)
[2023-01-04] MEDS: ALLOPURINOL 100 MG TABLET (FP) PO SCH ×2 (11:22→21:57)
[2023-01-04 20:33] VITALS: BP 121/74; PULSE 85; RESP 14; TEMP 97.6
[2023-01-04] MEDS: ROSUVASTATIN CA 5 MG TABLET PO SCH (21:57)
[2023-01-04] MEDS: LIDOCAINE PATCH REMOVAL MC SCH (21:59)
== END 2023-01-05 00:05 | DRG 552 ==
LOC: JER 21:54 → INTOOBSV 12-29 05:10 → JERBED 12-29 05:10 → J4S 12-29 08:28 → OBSVTOIN 12-30 12:40
PROVIDERS: ADMIT Internal Medicine; ATTEND Internal Medicine
DX: S32.018A Other fracture of first lumbar vertebra, initial encounter for closed fracture (principal); N17.9 Acute kidney failure, unspecified; R42 Dizziness and giddiness; I25.10 Atherosclerotic heart disease of native coronary artery without angina pectoris; I48.0 Paroxysmal atrial fibrillation; E78.5 Hyperlipidemia, unspecified; I34.0 Nonrheumatic mitral (valve) insufficiency; H53.2 Diplopia; G25.81 Restless legs syndrome; J44.9 Chronic obstructive pulmonary disease, unspecified; M10.9 Gout, unspecified; I12.9 Hypertensive chronic kidney disease with stage 1 through stage 4 chronic kidney disease, or unspecified chronic kidney disease; E11.22 Type 2 diabetes mellitus with diabetic chronic kidney disease; N18.9 Chronic kidney disease, unspecified; E86.0 Dehydration; M54.50 Low back pain, unspecified; G25.2 Other specified forms of tremor; I95.1 Orthostatic hypotension; K76.0 Fatty (change of) liver, not elsewhere classified; G43.809 Other migraine, not intractable, without status migrainosus; E03.9 Hypothyroidism, unspecified; W18.30XA Fall on same level, unspecified, initial encounter; Y93.89 Activity, other specified; Y92.89 Other specified places as the place of occurrence of the external cause
CPT/HCPCS: 36415; 70450-TC; 70486-TC; 71045-TC-FY; 72125-TC; 72131-TC; 72170-TC-FY; 80048; 80053; 81003; 82550; 82962; 83735; 84100; 84443; 84484; 85025; 85027; 85610; 85730; 86850; 86900; 86901; 87086; 93005; 93010; 94010; 94640; 97116-GP; 97161-GP; 99285-25; G0378

== ENCOUNTER 2023-06-19 04:27 | Day surgery (SDC) | payer OTHER, BC ==
[2023-06-15 13:34] VITALS: BMI 27.3
[2023-06-19] MEDS ORDERED: BUPIVACAINE HCL/PF 0.75% 10 ML VIAL ONE (07:39)
[2023-06-19] MEDS ORDERED: LIDOCAINE HCL/PF 1% SDV 5ML VIAL ONE (07:39)
[2023-06-19] MEDS: BUPIVACAINE 0.75% IN DEXTROSE/PF 2ML AMPULE NR ONE ×2 (11:16→11:36)
[2023-06-19] MEDS: LIDOCAINE 1% P/F 10 MG/ML VIAL INF ONE ×2 (11:16→11:33)
[2023-06-19 11:57] VITALS: BP 127/73; PULSE 70; RESP 16; TEMP 98.4
[2023-06-19] MEDS ORDERED: ACETAMINOPHEN 500 MG TABLET (FP) PO PRN (14:41)
== END 2023-06-19 12:05 | disposition home or self-care (01) ==
LOC: JASU-SURG 04:27
PROVIDERS: ATTEND Pain Medicine Pain Medicine
PROC: 3E0T33Z Introduction of Anti-inflammatory into Peripheral Nerves and Plexi, Percutaneous Approach (ICD-10-PCS; 2023-06-19)
PROC: 3E0T3BZ Introduction of Anesthetic Agent into Peripheral Nerves and Plexi, Percutaneous Approach (ICD-10-PCS; principal; 2023-06-19 11:30)
DX: M47.816 Spondylosis without myelopathy or radiculopathy, lumbar region (principal)
CPT/HCPCS: 76000-TC-FY

== ENCOUNTER 2023-06-22 13:56 | Inpatient (IN) | payer OTHER, BC ==
[2023-06-22 14:14] VITALS: BMI 27.1
[2023-06-22] MEDS ORDERED: morphine SULFATE 4 MG/ML VIAL ONE ×2 (16:04→17:53)
[2023-06-22] MEDS: morphine CARPU-JECT 4 MG/1 ML DISP.SYRIN IVPUSH ONE ×2 (16:07→17:57)
[2023-06-22 18:04] LABS: BASO % 0.4 % (0-2.0); EOS % 0.5 % (0-4.5); HEMATOCRIT 36.9 % (35.4-49); HEMOGLOBIN 11.9 GM/dL (11.7-16.9); LYMPH % 15.3 % (8-40); MCH 28.9 pg (25.7-33.7); MCHC 32.2 g/dl (32.0-35.9); MEAN CELL VOLUME 89.7 fl (80-96); MEAN PLT VOLUME 8.9 fl (7.5-11.1); NEUT % 75.8 % (42.8-82.8); PLATELET COUNT 198 10^3/uL (134-434); RBC 4.11 M/mm3 (4.00-5.60); RDW 17.9 % (11.9-15.9); WHITE BLOOD COUNT 12.5 K/mm3 (4.0-10.0)
[2023-06-22 18:10] LABS: POTASSIUM 4.2 mmol/L (3.5-5.1)
[2023-06-22 18:12] LABS: CALCIUM 8.9 mg/dL (8.5-10.1)
[2023-06-22 18:13] LABS: ALBUMIN 3.2 g/dl (3.4-5.0); BLOOD UREA NITROGEN 18.6 mg/dL (7-18)
[2023-06-22 18:14] LABS: INR 1.34 (0.83-1.09); PROTHROMBIN TIME (PATIENT) 15.5 SEC (9.7-13.0)
[2023-06-22 18:16] LABS: CREATININE 1.3 mg/dL (0.55-1.3)
[2023-06-22 18:17] LABS: ACTIVATED PTT 31.1 SECONDS (25.2-36.5); BILIRUBIN,TOTAL 0.7 mg/dL (0.2-1); TOT PROT 7.2 g/dl (6.4-8.2)
[2023-06-22] MEDS ORDERED: HYDROmorphone HCl 2 MG/ML VIAL IM ONE (20:25)
[2023-06-22] MEDS ORDERED: HYDROmorphone HCl 2 MG/ML VIAL ONE (20:28)
[2023-06-22] MEDS: HYDROmorphone HCl 2 MG/ML VIAL IVPUSH ONE (20:34)
[2023-06-22] MEDS: oxyCODONE HCL 5 MG TABLET PO PRN (22:00)
[2023-06-22] MEDS: morphine SULFATE 4 MG/ML VIAL IVPUSH PRN (22:42)
[2023-06-23] MEDS ORDERED: ALBUTEROL SO4 0.083% IH SOL 2.5 MG/3 ML VIAL.NEB. NEB PRN (00:03)
[2023-06-23] MEDS ORDERED: SUMAtriptan SUCCINATE 50 MG TABLET PO PRN ×2 (00:03→11:06)
[2023-06-23] MEDS: SODIUM CHLORIDE 1,000 ML IV SCH ×2 (01:13→12:30)
[2023-06-23] MEDS: INSULIN ASPART SLIDING SCALE (NOVOLOG) 1 VIAL SQ SCH (01:14)
[2023-06-23] MEDS: ACETAMINOPHEN 1000 MG/100 ML BAG IVPB PRN ×2 (01:16→12:28)
[2023-06-23] MEDS: PRAMIPEXOLE DIHYDROCHLORIDE 0.5 MG TABLET PO ONE (01:27)
[2023-06-23] MEDS: BUDESONIDE 0.25 MG/2ML INH SUSP VIAL NEB SCH ×2 (07:49→20:12)
[2023-06-23] MEDS: ALBUTEROL SO4 0.083% IH SOL 2.5 MG/3 ML VIAL.NEB. NEB PRN (07:55)
[2023-06-23 08:13] LABS: BASO % 0.7 % (0-2.0); EOS % 1.8 % (0-4.5); HEMATOCRIT 34.7 % (35.4-49); HEMOGLOBIN 11.1 GM/dL (11.7-16.9); LYMPH % 37.4 % (8-40); MCH 28.9 pg (25.7-33.7); MEAN CELL VOLUME 90.2 fl (80-96); MEAN PLT VOLUME 9.3 fl (7.5-11.1); MONO % 11.9 % (3.8-10.2); NEUT % 48.2 % (42.8-82.8); PLATELET COUNT 169 10^3/uL (134-434); RBC 3.84 M/mm3 (4.00-5.60); WHITE BLOOD COUNT 10.8 K/mm3 (4.0-10.0)
[2023-06-23 08:26] LABS: POTASSIUM 4.8 mmol/L (3.5-5.1)
[2023-06-23 08:32] LABS: BLOOD UREA NITROGEN 21.6 mg/dL (7-18)
[2023-06-23 08:35] LABS: CALCIUM 8.7 mg/dL (8.5-10.1); MAGNESIUM 2.1 mg/dL (1.8-2.4)
[2023-06-23 08:36] LABS: CREATININE 1.4 mg/dL (0.55-1.3); PHOSPHOROUS 3.9 mg/dL (2.5-4.9)
[2023-06-23] MEDS ORDERED: LIDOCAINE HCL/PF 2% SDV 5ML VIAL ONE (08:45)
[2023-06-23] MEDS ORDERED: ONDANSETRON 4 MG/2 ML VIAL ONE (08:45)
[2023-06-23] MEDS ORDERED: PROPOFOL 20 ML ONE (08:45)
[2023-06-23] MEDS ORDERED: PROMETHAZINE HCL 25 MG/1 ML VIAL IVPB PRN (08:59)
[2023-06-23] MEDS ORDERED: ONDANSETRON 4 MG/2 ML VIAL IVPUSH PRN (08:59)
[2023-06-23] MEDS ORDERED: LACTATED RINGERS SOLUTION 1,000 ML IV SCH (09:00)
[2023-06-23] MEDS: metoPROLOL SUCCINATE 25 MG TAB.SR.24H (FP) PO SCH (09:01)
[2023-06-23] MEDS: ALLOPURINOL 100 MG TABLET (FP) PO SCH (09:01)
[2023-06-23] MEDS: ceFAZolin SODIUM 1 GM VIAL IVPB ONE (09:30)
[2023-06-23] MEDS ORDERED: THYROID 60 MG TABLET PO SCH ×2 (10:00→10:42)
[2023-06-23] MEDS ORDERED: PRAMIPEXOLE DIHYDROCHLORIDE 0.5 MG TABLET PO SCH ×2 (10:00→22:00)
[2023-06-23] MEDS: THYROID 60 MG TABLET PO SCH (12:24)
[2023-06-23] MEDS: DOCUSATE SODIUM 100 MG CAPSULE (FP) PO SCH (14:29)
[2023-06-23] MEDS: LIDOCAINE 4% PATCH TP ONE (15:56)
[2023-06-23] MEDS: CEFAZOLIN 1 GM in DEXTROSE 5%-WATER - 50 ML IVPB SCH (17:25)
[2023-06-23] MEDS: morphine SULFATE 4 MG/ML VIAL IVPUSH PRN (17:27)
[2023-06-23] MEDS: AMIODARONE HCL 200 MG TABLET PO SCH (23:32)
[2023-06-23] MEDS: LIDOCAINE PATCH REMOVAL MC SCH (23:32)
[2023-06-23] MEDS: PRAMIPEXOLE DIHYDROCHLORIDE 0.5 MG TABLET PO SCH (23:33)
[2023-06-24] MEDS: INSULIN ASPART SLIDING SCALE (NOVOLOG) 1 VIAL SQ SCH (00:02)
[2023-06-24] MEDS: THYROID 60 MG TABLET PO SCH (06:39)
[2023-06-24] MEDS: CHOLECALCIFEROL (VIT D3) 1,000 UNIT (25 MCG) TABLET PO SCH (09:21)
[2023-06-24] MEDS: APIXABAN 5 MG TABLET PO SCH (09:21)
[2023-06-24] MEDS: metoPROLOL SUCCINATE 25 MG TAB.SR.24H (FP) PO SCH (09:22)
[2023-06-24] MEDS: ALLOPURINOL 100 MG TABLET (FP) PO SCH (09:22)
[2023-06-24] MEDS ORDERED: metoPROLOL SUCCINATE 25 MG TAB.SR.24H (FP) PO SCH (10:00)
[2023-06-25] MEDS ORDERED: INSULIN (NOVOLOG) ASPART 100 UNITS/ML 10ML VIAL ONE (07:16)
[2023-06-25] MEDS: POLYETHYLENE GLYCOL (HEALTHYLAX) 3350 17 GM PACKET PO SCH (10:38)
[2023-06-25] MEDS: ACETAMINOPHEN 1000 MG/100 ML BAG IVPB SCH (10:38)
[2023-06-25 12:28] LABS: HEMATOCRIT 30.3 % (35.4-49); MCH 29.6 pg (25.7-33.7); MCHC 33.1 g/dl (32.0-35.9); MEAN CELL VOLUME 89.5 fl (80-96); PLATELET COUNT 162 10^3/uL (134-434); RBC 3.38 M/mm3 (4.00-5.60); RDW 17.2 % (11.9-15.9); WHITE BLOOD COUNT 11.2 K/mm3 (4.0-10.0)
[2023-06-25 12:41] LABS: POTASSIUM 4.7 mmol/L (3.5-5.1)
[2023-06-25 12:46] LABS: BLOOD UREA NITROGEN 24.4 mg/dL (7-18); CALCIUM 8.9 mg/dL (8.5-10.1)
[2023-06-25 12:49] LABS: CREATININE 1.2 mg/dL (0.55-1.3)
[2023-06-25 12:51] LABS: BILIRUBIN,TOTAL 0.9 mg/dL (0.2-1); TOT PROT 5.9 g/dl (6.4-8.2)
[2023-06-25 12:55] LABS: ALBUMIN 2.2 g/dl (3.4-5.0)
[2023-06-25] MEDS: SENNOSIDES 8.8 MG/5 ML SYRUP PO SCH (21:39)
[2023-06-25] MEDS ORDERED: SENNOSIDES 8.8 MG/5 ML SYRUP PO SCH (22:00)
[2023-06-26 07:02] LABS: HEMATOCRIT 29.7 % (35.4-49); HEMOGLOBIN 9.6 GM/dL (11.7-16.9); MCH 29.1 pg (25.7-33.7); MCHC 32.3 g/dl (32.0-35.9); MEAN CELL VOLUME 89.9 fl (80-96); MEAN PLT VOLUME 8.8 fl (7.5-11.1); PLATELET COUNT 190 10^3/uL (134-434); RDW 17.3 % (11.9-15.9); WHITE BLOOD COUNT 10.9 K/mm3 (4.0-10.0)
[2023-06-26 07:14] LABS: POTASSIUM 4.5 mmol/L (3.5-5.1)
[2023-06-26 07:19] LABS: CALCIUM 8.6 mg/dL (8.5-10.1)
[2023-06-26 07:20] LABS: ALBUMIN 2.2 g/dl (3.4-5.0); BLOOD UREA NITROGEN 28.1 mg/dL (7-18)
[2023-06-26 07:22] LABS: CREATININE 1.1 mg/dL (0.55-1.3)
[2023-06-26 07:24] LABS: BILIRUBIN,TOTAL 0.9 mg/dL (0.2-1); TOT PROT 5.6 g/dl (6.4-8.2)
[2023-06-26] MEDS: ALBUTEROL SO4 0.083% IH SOL 2.5 MG/3 ML VIAL.NEB. NEB PRN (08:15)
[2023-06-26] MEDS: ARTIFICIAL TEARS OPHTHALMIC DROPS OU PRN (09:30)
[2023-06-26 15:42] VITALS: RESP 18
[2023-06-26 18:08] VITALS: BP 120/70; PULSE 81; TEMP 97.2
== END 2023-06-26 18:50 | DRG 482 ==
LOC: JER 13:56 → JERBED 20:31 → J6S 21:03 → J4W 21:49
PROVIDERS: ADMIT Internal Medicine; ATTEND Internal Medicine
PROC: 0QS636Z Reposition Right Upper Femur with Intramedullary Internal Fixation Device, Percutaneous Approach (ICD-10-PCS; principal; 2023-06-23 09:00)
DX: S72.141A Displaced intertrochanteric fracture of right femur, initial encounter for closed fracture (principal); I10 Essential (primary) hypertension; I48.91 Unspecified atrial fibrillation; E78.5 Hyperlipidemia, unspecified; E11.9 Type 2 diabetes mellitus without complications; K59.03 Drug induced constipation; E03.9 Hypothyroidism, unspecified; I25.10 Atherosclerotic heart disease of native coronary artery without angina pectoris; W19.XXXA Unspecified fall, initial encounter; Y93.9 Activity, unspecified; Y92.89 Other specified places as the place of occurrence of the external cause; Y99.9 Unspecified external cause status
CPT/HCPCS: 36415; 70450-TC; 71045-TC-FY; 72125-TC; 72170-TC-FY; 73552-TC-RT-FY; 74018-TC-FY; 76000-TC-FY; 80048; 80053; 82962; 83735; 84100; 84439; 84443; 84484; 85025; 85027; 85610; 85730; 86850; 86900; 86901; 87635; 93005; 93010; 94010; 94640; 94760; 97116-GP; 99285-25; C1713; J0131

== ENCOUNTER 2024-01-03 04:34 | Day surgery (SDC) | payer OTHER, BC ==
[2023-12-31 16:25] VITALS: BMI 24.4
[2024-01-03] MEDS ORDERED: LIDOCAINE HCL/PF 1% SDV 5ML VIAL ONE (07:42)
[2024-01-03] MEDS ORDERED: LIDOCAINE HCL/PF 2% SDV 5ML VIAL ONE (07:42)
[2024-01-03] MEDS ORDERED: BUPIVACAINE HCL/PF 0.25% (2.5MG/ML) 10 ML VIAL ONE ×2 (07:42→13:23)
[2024-01-03 11:58] VITALS: RESP 16
[2024-01-03] MEDS: BUPIVACAINE HCL/PF 0.25% (2.5MG/ML) 10 ML VIAL IJ ONE (14:06)
[2024-01-03] MEDS: LIDOCAINE 1% P/F 10 MG/ML VIAL PNB ONE (14:06)
[2024-01-03] MEDS ORDERED: ACETAMINOPHEN 500 MG TABLET (FP) ONE (16:10)
[2024-01-03] MEDS: ACETAMINOPHEN 500 MG TABLET (FP) PO ONE (16:15)
[2024-01-03 17:08] VITALS: BP 144/81; PULSE 74; TEMP 97.5
== END 2024-01-03 16:45 | disposition home or self-care (01) ==
LOC: JASU-SURG 04:34
PROVIDERS: ATTEND Pain Medicine Pain Medicine
PROC: 01HY0MZ Insertion of Neurostimulator Lead into Peripheral Nerve, Open Approach (ICD-10-PCS; principal; 2024-01-03 13:00)
DX: G89.4 Chronic pain syndrome (principal); M54.31 Sciatica, right side
CPT/HCPCS: C1778

== ENCOUNTER 2024-01-24 04:16 | Day surgery (SDC) | payer OTHER, BC ==
[2024-01-22 13:17] VITALS: BMI 24.4
[2024-01-24] MEDS ORDERED: BUPIVACAINE HCL/PF 0.25% (2.5MG/ML) 10 ML VIAL ONE (07:23)
[2024-01-24] MEDS ORDERED: LIDOCAINE HCL/PF 1% SDV 5ML VIAL ONE (07:23)
[2024-01-24 07:38] VITALS: RESP 18
[2024-01-24] MEDS: LIDOCAINE HCL 1% PRESERVATIVE FREE - 30ML VIAL IJ ONE (09:13)
[2024-01-24] MEDS: BUPIVACAINE HCL/PF 0.25% (2.5MG/ML) 10 ML VIAL IJ ONE (09:49)
[2024-01-24] MEDS ORDERED: ACETAMINOPHEN 500 MG TABLET (FP) PO PRN (11:03)
[2024-01-24 11:55] VITALS: BP 144/70; PULSE 70; TEMP 97.3
== END 2024-01-24 11:00 | disposition home or self-care (01) ==
LOC: JASU-SURG 04:16
PROVIDERS: ATTEND Pain Medicine Pain Medicine
PROC: 01HY0MZ Insertion of Neurostimulator Lead into Peripheral Nerve, Open Approach (ICD-10-PCS; principal; 2024-01-24 08:45)
DX: G89.4 Chronic pain syndrome (principal); M54.31 Sciatica, right side
CPT/HCPCS: 64575; C1778

== ENCOUNTER 2024-10-13 11:02 | Emergency (ER) | payer OTHER, MEDICARE ==
[2024-10-13 11:16] VITALS: BP 134/81; PULSE 70; RESP 18; TEMP 98.6; BMI 27.4
[2024-10-13] MEDS ORDERED: ACETAMINOPHEN 500 MG TABLET (FP) ONE (11:57)
[2024-10-13] MEDS: ACETAMINOPHEN 500 MG TABLET (FP) PO ONE (12:39)
== END 2024-10-13 14:37 | disposition home or self-care (01) ==
LOC: FER 11:02
DX: M25.511 Pain in right shoulder (principal); M25.521 Pain in right elbow; M25.561 Pain in right knee; W01.198A Fall on same level from slipping, tripping and stumbling with subsequent striking against other object, initial encounter; Y92.009 Unspecified place in unspecified non-institutional (private) residence as the place of occurrence of the external cause; Y93.01 Activity, walking, marching and hiking
CPT/HCPCS: 70450-TC; 72125-TC; 73030-TC-RT-FY; 73070-TC-RT-FY; 73564-TC-RT-FY; 99284-25

== ENCOUNTER 2025-01-22 10:45 | Inpatient (IN) | payer OTHER, MEDICARE ==
[2025-01-22 12:43] LABS: ABSOLUTE IMMATURE GRANULOCYTES 0.03 x10^3/uL (0.0-0.031); BASOPHILS # 0.05 x10^3/uL (0.01-0.08); EOSINOPHIL % 6.4 % (0.8-7.0); EOSINOPHILS # 0.56 x10^3/uL (0.04-0.54); MCHC 31.1 g/dl (32.3-36.5); MEAN CELL VOLUME 90.7 fl (79.0-92.2); MEAN PLT VOLUME 9.9 fl (9.4-12.4); MONOCYTE # 0.56 x10^3/uL (0.30-0.82); MONOCYTE % 6.4 % (5.3-12.2); RDW 16.4 % (12.6-16.6)
[2025-01-22 12:53] LABS: INR 1.95 (0.83-1.09); PROTHROMBIN TIME (PATIENT) 21.3 SEC (9.7-13.0)
[2025-01-22 12:56] LABS: ACTIVATED PTT 34.6 SECONDS (25.2-36.5)
[2025-01-22 12:59] LABS: GLUCOSE,RANDOM 95.0 mg/dL (74-106); TOT PROT 7.2 g/dl (6.4-8.2)
[2025-01-22 13:00] LABS: CO2 22.0 mmol/L (21-32)
[2025-01-22 13:01] LABS: ALK PHOS 337.0 U/L (40-150)
[2025-01-22 13:04] LABS: SGOT/AST 48.0 U/L (5-34); SGPT/ALT 28.0 U/L (0-55)
[2025-01-22 13:05] LABS: CREATININE 1.25 mg/dL (0.55-1.3)
[2025-01-22 13:22] LABS: HIV INTERPRETATION NEGATIVE (NEGATIVE)
[2025-01-22 13:23] LABS: HCV DIAGNOSTIC IN-HOUSE W/RFLX NON-REACTIVE (NONREACTIVE)
[2025-01-22] MEDS ORDERED: VANCOMYCIN 1 GM PREMIX (F) 1 GM/200 ML BAG ONE ×2 (14:00)
[2025-01-22] MEDS ORDERED: CEFAZOLIN 1 GM/D5W 1 GM/50 ML BAG ONE (14:00)
[2025-01-22] MEDS: CEFAZOLIN 1 GM in DEXTROSE 5%-WATER - 50 ML IVPB ONE (14:16)
[2025-01-22] MEDS: VANCOMYCIN 1,000 MG in DEXTROSE 5%-WATER - 250 ML IVPB ONE (14:47)
[2025-01-22] MEDS ORDERED: ACETAMINOPHEN 1000 MG/100 ML BAG IVPB PRN (16:55)
[2025-01-22 17:12] VITALS: BMI 25.6
[2025-01-22] MEDS: LIDOCAINE PATCH REMOVAL MC SCH (20:38)
[2025-01-22] MEDS: ACETAMINOPHEN 500 MG TABLET (FP) PO PRN (21:41)
[2025-01-22] MEDS: APIXABAN 5 MG TABLET PO SCH (21:42)
[2025-01-22] MEDS: INSULIN ASPART SLIDING SCALE (NOVOLOG) 1 VIAL SQ SCH (21:46)
[2025-01-22] MEDS: AMIODARONE HCL 200 MG TABLET PO SCH (22:12)
[2025-01-23] MEDS ORDERED: VANCOMYCIN HCL 1,500 MG in DEXTROSE 5%-WATER - 250 ML IVPB SCH (03:00)
[2025-01-23] MEDS: VANCOMYCIN HCL IN 5 % DEXTROSE 1,500 MG/300 ML BAG IVPB SCH (03:49)
[2025-01-23 08:43] LABS: ABSOLUTE IMMATURE GRANULOCYTES 0.03 x10^3/uL (0.0-0.031); BASOPHILS # 0.03 x10^3/uL (0.01-0.08); EOSINOPHIL % 8.4 % (0.8-7.0); EOSINOPHILS # 0.65 x10^3/uL (0.04-0.54); MCHC 31.7 g/dl (32.3-36.5); MEAN CELL VOLUME 90.5 fl (79.0-92.2); MEAN PLT VOLUME 10.2 fl (9.4-12.4); MONOCYTE # 0.57 x10^3/uL (0.30-0.82); MONOCYTE % 7.4 % (5.3-12.2); RDW 16.6 % (12.6-16.6)
[2025-01-23] MEDS: LIDOCAINE 5% TOPICAL PATCH TP SCH (08:51)
[2025-01-23 10:08] LABS: GLUCOSE,RANDOM 84.0 mg/dL (74-106)
[2025-01-23 10:09] LABS: CO2 22.0 mmol/L (21-32); TOT PROT 6.6 g/dl (6.4-8.2)
[2025-01-23 10:11] LABS: ALK PHOS 285.0 U/L (40-150)
[2025-01-23 10:14] LABS: CREATININE 1.16 mg/dL (0.55-1.3); SGOT/AST 39.0 U/L (5-34); SGPT/ALT 18.0 U/L (0-55)
[2025-01-23] MEDS: ALLOPURINOL 100 MG TABLET (FP) PO SCH (10:27)
[2025-01-24 08:58] LABS: ABSOLUTE IMMATURE GRANULOCYTES 0.02 x10^3/uL (0.0-0.031); BASOPHILS # 0.07 x10^3/uL (0.01-0.08); EOSINOPHIL % 7.9 % (0.8-7.0); EOSINOPHILS # 0.68 x10^3/uL (0.04-0.54); MCHC 31.0 g/dl (32.3-36.5); MEAN CELL VOLUME 90.7 fl (79.0-92.2); MEAN PLT VOLUME 9.7 fl (9.4-12.4); MONOCYTE # 0.57 x10^3/uL (0.30-0.82); MONOCYTE % 6.6 % (5.3-12.2); RDW 16.4 % (12.6-16.6)
[2025-01-24] MEDS: DOXYCYCLINE INJECTION 100 MG in DEXTROSE 5%-WATER 100 ML IVPB SCH (09:32)
[2025-01-24 09:41] LABS: GLUCOSE,RANDOM 106.0 mg/dL (74-106); TOT PROT 6.6 g/dl (6.4-8.2)
[2025-01-24 09:42] LABS: CO2 23.0 mmol/L (21-32)
[2025-01-24 09:44] LABS: ALK PHOS 301.0 U/L (40-150); ERYTHROCYTE SEDIMENTATION RATE 7 mm/hr (0-20)
[2025-01-24 09:47] LABS: CREATININE 1.2 mg/dL (0.55-1.3); SGOT/AST 40.0 U/L (5-34); SGPT/ALT 20.0 U/L (0-55)
[2025-01-24 09:48] LABS: IRON SERUM 36.0 ug/dL (50-175)
[2025-01-24] MEDS ORDERED: AZTREONAM 1 GM in DEXTROSE 5%-WATER - 50 ML IVPB SCH (10:00)
[2025-01-24] MEDS ORDERED: diphenhydrAMINE HCL 25 MG CAPSULE (FP) PO PRN (11:10)
[2025-01-24] MEDS: AZTREONAM 1 GM in DEXTROSE 5%-WATER - 50 ML IVPB SCH (11:31)
[2025-01-24] MEDS: LORATADINE 10 MG TABLET PO SCH (12:07)
[2025-01-24] MEDS: CLOTRIMAZOLE 1% CREAM TP SCH ×2 (12:42→21:23)
[2025-01-25 09:23] LABS: ABSOLUTE IMMATURE GRANULOCYTES 0.02 x10^3/uL (0.0-0.031); BASOPHILS # 0.06 x10^3/uL (0.01-0.08); EOSINOPHIL % 11.0 % (0.8-7.0); EOSINOPHILS # 0.88 x10^3/uL (0.04-0.54); MCHC 30.7 g/dl (32.3-36.5); MEAN CELL VOLUME 91.6 fl (79.0-92.2); MEAN PLT VOLUME 11.6 fl (9.4-12.4); MONOCYTE # 0.55 x10^3/uL (0.30-0.82); MONOCYTE % 6.8 % (5.3-12.2); RDW 16.6 % (12.6-16.6)
[2025-01-25] MEDS ORDERED: AZTREONAM 1 GM VIAL (RESTRICTED TO ID) ONE (09:42)
[2025-01-25 10:13] LABS: GLUCOSE,RANDOM 108.0 mg/dL (74-106); TOT PROT 6.7 g/dl (6.4-8.2)
[2025-01-25 10:14] LABS: CO2 18.0 mmol/L (21-32)
[2025-01-25 10:16] LABS: ALK PHOS 288.0 U/L (40-150)
[2025-01-25 10:18] LABS: SGOT/AST 46.0 U/L (5-34); SGPT/ALT 16.0 U/L (0-55)
[2025-01-25 10:19] LABS: CREATININE 1.17 mg/dL (0.55-1.3)
[2025-01-25] MEDS: CEFTRIAXONE 1 GM in DEXTROSE 5%-WATER - 50 ML IVPB SCH (16:38)
[2025-01-25] MEDS: MAGNESIUM 1GM/D5W - 1 GM/100 ML IVPB IVPB ONE (19:04)
[2025-01-25] MEDS: diphenhydrAMINE HCL 25 MG CAPSULE (FP) PO PRN (21:40)
[2025-01-26 08:09] LABS: ABSOLUTE IMMATURE GRANULOCYTES 0.03 x10^3/uL (0.0-0.031); BASOPHILS # 0.07 x10^3/uL (0.01-0.08); EOSINOPHIL % 12.7 % (0.8-7.0); EOSINOPHILS # 1.14 x10^3/uL (0.04-0.54); MCHC 31.0 g/dl (32.3-36.5); MEAN CELL VOLUME 90.2 fl (79.0-92.2); MEAN PLT VOLUME 10.1 fl (9.4-12.4); MONOCYTE # 0.61 x10^3/uL (0.30-0.82); MONOCYTE % 6.8 % (5.3-12.2); RDW 16.7 % (12.6-16.6)
[2025-01-26 08:45] LABS: GLUCOSE,RANDOM 83.0 mg/dL (74-106); TOT PROT 6.8 g/dl (6.4-8.2)
[2025-01-26 08:46] LABS: CO2 22.0 mmol/L (21-32)
[2025-01-26 08:47] LABS: ALK PHOS 323.0 U/L (40-150)
[2025-01-26 08:50] LABS: SGOT/AST 47.0 U/L (5-34); SGPT/ALT 24.0 U/L (0-55)
[2025-01-26 09:03] LABS: ERYTHROCYTE SEDIMENTATION RATE 9 mm/hr (0-20)
[2025-01-26 10:52] LABS: CREATININE 1.24 mg/dL (0.55-1.3)
[2025-01-27 10:00] LABS: ABSOLUTE IMMATURE GRANULOCYTES 0.03 x10^3/uL (0.0-0.031); BASOPHILS # 0.06 x10^3/uL (0.01-0.08); EOSINOPHIL % 13.8 % (0.8-7.0); EOSINOPHILS # 1.10 x10^3/uL (0.04-0.54); MCHC 31.0 g/dl (32.3-36.5); MEAN CELL VOLUME 90.5 fl (79.0-92.2); MEAN PLT VOLUME 10.1 fl (9.4-12.4); MONOCYTE # 0.53 x10^3/uL (0.30-0.82); MONOCYTE % 6.6 % (5.3-12.2); RDW 17.0 % (12.6-16.6)
[2025-01-27 10:27] LABS: GLUCOSE,RANDOM 106.0 mg/dL (74-106); TOT PROT 6.4 g/dl (6.4-8.2)
[2025-01-27 10:28] LABS: CO2 24.0 mmol/L (21-32)
[2025-01-27 10:30] LABS: ALK PHOS 326.0 U/L (40-150)
[2025-01-27 10:33] LABS: CREATININE 1.32 mg/dL (0.55-1.3); SGOT/AST 75.0 U/L (5-34); SGPT/ALT 40.0 U/L (0-55)
[2025-01-27] MEDS: THYROID 60 MG TABLET PO SCH (12:54)
[2025-01-28 00:33] VITALS: PULSE 70
[2025-01-28 14:00] VITALS: BP 109/68; RESP 17; TEMP 97.3
== END 2025-01-28 14:35 | DRG 603 ==
LOC: JER 10:45 → JERBED 14:44 → J6S 16:29
PROVIDERS: ADMIT Student in an Organized Health Care Education/Training Program; ATTEND Internal Medicine
PROC: 05HY33Z Insertion of Infusion Device into Upper Vein, Percutaneous Approach (ICD-10-PCS; principal; 2025-01-27)
DX: L03.116 Cellulitis of left lower limb (principal); I48.20 Chronic atrial fibrillation, unspecified; E11.22 Type 2 diabetes mellitus with diabetic chronic kidney disease; E11.65 Type 2 diabetes mellitus with hyperglycemia; E11.42 Type 2 diabetes mellitus with diabetic polyneuropathy; E03.9 Hypothyroidism, unspecified; I12.9 Hypertensive chronic kidney disease with stage 1 through stage 4 chronic kidney disease, or unspecified chronic kidney disease; N18.9 Chronic kidney disease, unspecified; E78.5 Hyperlipidemia, unspecified; L89.151 Pressure ulcer of sacral region, stage 1
CPT/HCPCS: 36415; 36569; 73630-TC-LT; 73630-TC-RT-FY; 80053; 82550; 82607; 82728; 82962; 83540; 83550; 83735; 84100; 84466; 85025; 85610; 85651; 85730; 86140; 86803; 86850; 86900; 86901; 87040; 87070; 87081; 87205; 87389; 99285-25